=== PATIENT | female | born 1945 | race Asian ===

== ENCOUNTER 2020-09-09 09:10 | Day surgery (SDC) | payer OTHER, SELFPAY ==
[2020-09-02 14:36] VITALS: BMI 27.9
--- NOTE | 2020-09-04 08:06 | MHC.SHP ---
Pre-Procedural Eval Section A The patient is an INPATIENT: No The History & Physical has been completed within 30 days and I have reviewed it.: Yes Section B Chief Complaint: Cataract Left Eye Allergies: Allergies Allergy/AdvReac Type Severity Reaction Status Date / Time No Known Allergies Allergy Verified 09/02/20 14:45 Plan Diagnosis/Plan: Unchanged Patient has been examined and remains a candidate for the planned procedure
--- NOTE | 2020-09-09 09:57 | PC.NURSE ---
patient speaks estonian. family wasnt with patient. using [employer] latex spooler.
--- NOTE | 2020-09-09 10:08 | PC.NURSE ---
linda riversi [phone]
--- NOTE | 2020-09-09 10:16 | P.CONAN_ITS ---
[facility] Past Medical History Medical History Back pain GERD (gastroesophageal reflux disease) Hepatitis Thyroid disease Surgical History Surgical History H/O colonoscopy Hx of hysterectomy Social History Social History Smoking Status: Never smoker Use of substances other than those prescribed or required for medical reasons: No Advance Directives Information Provided: No Recently lost weight without trying: No Meds Allergies Allergy/AdvReac Type Severity Reaction Status Date / Time No Known Allergies Allergy Verified 09/02/20 14:45 Home Medications Medication Instructions Recorded Confirmed Type aspirin 1 tab PO DAILY 09/02/20 09/02/20 History fluoxetine 1 tab PO DAILY 09/02/20 09/02/20 History levothyroxine 1 tab PO DAILY 09/02/20 09/02/20 History meloxicam 1 tab PO DAILY 09/02/20 09/02/20 History metronidazole 1 TOPICAL DAILY 09/02/20 History omeprazole 40 mg PO DAILY 09/02/20 09/02/20 History Exam Exam Date and Time: September 09, 2020 1016 Height,Weight and Vital Signs: Height 4 ft 9 in Weight 58.513 kg Airway Mallampati Class: III TM Dist: >3cm Neck ROM: Full Loose/Missing/Broken Teeth: Yes, Upper and Lower (Overall poor dentition) Heart: RRR Lungs: CTA Assessment and Plan Assessment Anesthesia Assessment: Anesthesia Plan Discussed and Chart Reviewed Final Anesthetic Review NPO: Yes ASA Class: II Final Preanesthetic Review: Meds/Allgs Chart Reviewed, Consent Obtained/Reviewed and Anes Risks/Benef Reviewed Patient Risk: Low Procedure Risk: Low Anesthetic Plan Anesthetic Plan: MAC: Disposition: Standard PACU
--- NOTE | 2020-09-09 10:30 | PC.NURSE ---
patient doesnt know her birthday but has no sugns of confusion. spoke to her son in law caleb at [phone] and states she signs for herself and that she isnt confused and that is her baseline not knowing her birthday.spoke to ana and that is ok to proceed. signs with an x only.
[2020-09-09 10:34] VITALS: BP 172/88; PULSE 75; RESP 16; TEMP 37
[2020-09-09] MEDS: Tetracaine HCl/PF 0.5% Oph Sol 4 ML DROPS 1 DROP EYE-LEFT (10:41)
[2020-09-09] MEDS: Lactated Ringers 500 ML 50 ML IV (10:41)
[2020-09-09] MEDS: Tropicamide 1 % Ophth Sol 3 ML BTL 1 DROP EYE-LEFT ×3 (10:43→10:52)
--- NOTE | 2020-09-09 11:02 | PC.NURSE ---
two meds taken but unknown
[2020-09-09 12:04] VITALS: PULSE 63; RESP 18; TEMP 36.4; O2SAT 99
--- NOTE | 2020-09-09 12:04 | HO.PNOPHT ---
Ophthalmology Procedure Procedure Date of Service: 09/09/20 Ophthalmology Viscoelastic: Healon Duet Dual Pack Pro Ophthalmology Lenses: [id number] [id number] (22) Procedure Notes: PREOPERATIVE DIAGNOSIS: Decreased visual acuity left eye secondary to cataract POSTOPERATIVE DIAGNOSIS: Same PROCEDURE: Left cataract extraction with intraocular lens insertion SURGEON: Mal Olivas M.D. ANESTHESIA: Topical/MAC ESTIMATED BLOOD LOSS: None COMPLICATIONS: None After obtaining informed consent, the patient was brought to the operation room suite and placed in the supine position. After adequate sedation per anesthesia, topical drops of Tetracaine were given to the left eye. The eye was then prepped and draped in the usual sterile fashion. The operating room microscope was then positioned over the operative eye and a lid speculum placed. A paracentesis was created. Viscoelastic was then instilled into the anterior chamber. A three plane incision was then created temporally, utilizing a 2.85 mm keratome. Capsulotomy forceps were then utilized to create a circular tear capsulotomy. Hydrodissection and hydrodelineation were carried out until adequate mobilization of the nucleus occurred. Phacoemulsification was then utilized to remove the dense central nucleus followed by removal of the cortical material utilizing the automated aspiration irrigation unit. Viscoat elastic was instilled into the posterior capsular bag followed by placement of a posterior chamber intraocular lens without difficulty. The residual Viscoat elastic was then removed utilizing the automated IA machine. The wound was check and found to be watertight. The patient tolerated the procedure well and the lid speculum was removed. Intracameral injection of Vigamox 0.1 mL followed by a subtenon injection of Kenalog-40 0.2 mL were administered. The patient will be seen in the a.m.
== END 2020-09-09 12:44 | disposition home or self-care (01) ==
PROVIDERS: PCP Pediatrics; Visit Provider Ophthalmology
PROC: (CPT 66985; principal; 2020-09-09 11:40)
DX: H25.12 Age-related nuclear cataract, left eye (principal); H54.7 Unspecified visual loss; E07.9 Disorder of thyroid, unspecified; Z79.82 Long term (current) use of aspirin; Z79.899 Other long term (current) drug therapy
CPT/HCPCS: 66984; J2250; J3010; J3300; V2632

== ENCOUNTER 2020-09-23 06:51 | Day surgery (SDC) | payer OTHER, SELFPAY ==
[2020-09-02 14:49] VITALS: BMI 27.4
--- NOTE | 2020-09-10 13:13 | MHC.SHP ---
Pre-Procedural Eval Section A The patient is an INPATIENT: No The History & Physical has been completed within 30 days and I have reviewed it.: Yes Section B Chief Complaint: Cataract Right Eye Allergies: Allergies Allergy/AdvReac Type Severity Reaction Status Date / Time No Known Allergies Allergy Verified 09/02/20 14:45 Plan Diagnosis/Plan: Unchanged Patient has been examined and remains a candidate for the planned procedure
--- NOTE | 2020-09-16 14:20 | HO.ANESPROP2 ---
Documented by User: Lynn Naidu 09/16/20 14:20 HPI - Anesthesia Eval Consult details Narrative: 74yo F for Cataract Extraction 1st eye: Fent 25, Midaz 1 [facility] Past Medical History Medical History Back pain GERD (gastroesophageal reflux disease) Hepatitis Thyroid disease Surgical History Surgical History H/O colonoscopy Hx of hysterectomy Social History Social History Smoking Status: Never smoker Use of substances other than those prescribed or required for medical reasons: No Have you been hit, kicked, punched, or otherwise hurt by someone within the past year? If so, by whom?: No Advance Directives Information Provided: No Recently lost weight without trying: No Meds Allergies Allergy/AdvReac Type Severity Reaction Status Date / Time No Known Allergies Allergy Verified 09/02/20 14:45 Home Medications Medication Instructions Recorded Confirmed Type aspirin 1 tab PO DAILY 09/02/20 09/02/20 History fluoxetine 1 tab PO DAILY 09/02/20 09/02/20 History levothyroxine 1 tab PO DAILY 09/02/20 09/02/20 History meloxicam 1 tab PO DAILY 09/02/20 09/02/20 History metronidazole 1 TOPICAL DAILY 09/02/20 History omeprazole 40 mg PO DAILY 09/02/20 09/02/20 History Exam Exam Date and Time: September 16, 2020 1420 Height,Weight and Vital Signs: Height 4 ft 9 in Weight 57.606 kg Assessment and Plan Assessment Anesthesia Assessment: Chart Reviewed Documented by User: Rae Bowens 09/23/20 07:40 [facility] Past Medical History Medical History Back pain GERD (gastroesophageal reflux disease) Hepatitis Thyroid disease Surgical History Surgical History H/O colonoscopy Hx of hysterectomy Social History Social History Smoking Status: Never smoker Use of substances other than those prescribed or required for medical reasons: No Have you been hit, kicked, punched, or otherwise hurt by someone within the past year? If so, by whom?: No Advance Directives Information Provided: No Recently lost weight without trying: No Meds Allergies Allergy/AdvReac Type Severity Reaction Status Date / Time No Known Allergies Allergy Verified 09/02/20 14:45 Home Medications Medication Instructions Recorded Confirmed Type aspirin 1 tab PO DAILY 09/02/20 09/02/20 History fluoxetine 1 tab PO DAILY 09/02/20 09/02/20 History levothyroxine 1 tab PO DAILY 09/02/20 09/02/20 History meloxicam 1 tab PO DAILY 09/02/20 09/02/20 History metronidazole 1 TOPICAL DAILY 09/02/20 History omeprazole 40 mg PO DAILY 09/02/20 09/02/20 History Exam Airway Mallampati Class: III TM Dist: >3cm Neck ROM: Full Loose/Missing/Broken Teeth: Yes, Upper and Lower Heart: RRR Lungs: CTA Assessment and Plan Assessment Anesthesia Assessment: Anesthesia Plan Discussed and Chart Reviewed Final Anesthetic Review NPO: Yes ASA Class: II Final Preanesthetic Review: No Changes in Pt Med Stat, Meds/Allgs Chart Reviewed, Consent Obtained/Reviewed and Anes Risks/Benef Reviewed Patient Risk: Low Procedure Risk: Low Anesthetic Plan Anesthetic Plan: MAC: Disposition: Standard PACU
[2020-09-23 07:11] VITALS: BP 160/77; PULSE 65; RESP 20; TEMP 36.6; O2SAT 98
--- NOTE | 2020-09-23 07:56 | PC.NURSE ---
karthikeyan engagement specialist through [employer]
[2020-09-23] MEDS: Lactated Ringers 500 ML 50 ML IV (08:02)
[2020-09-23] MEDS: Tetracaine HCl/PF 0.5% Oph Sol 4 ML DROPS 1 DROP EYE-RIGHT (08:04)
[2020-09-23] MEDS: Tropicamide 1 % Ophth Sol 3 ML BTL 1 DROP EYE-RIGHT ×3 (08:05→08:10)
--- NOTE | 2020-09-23 08:35 | HO.PNOPHT ---
Ophthalmology Procedure Procedure Date of Service: 09/23/20 Ophthalmology Viscoelastic: Healon Duet Dual Pack Pro Ophthalmology Lenses: TECNIS [id number] (22.5) Procedure Notes: PREOPERATIVE DIAGNOSIS: Decreased visual acuity right eye secondary to cataract POSTOPERATIVE DIAGNOSIS: Same PROCEDURE: Right cataract extraction with intraocular lens insertion SURGEON: Mal Olivas M.D. ANESTHESIA: Topical/MAC ESTIMATED BLOOD LOSS: None COMPLICATIONS: None After obtaining informed consent, the patient was brought to the operating room suite and placed in the supine position. After adequate sedation per anesthesia, topical drops of Tetracaine were given to the right eye. The eye was then prepped and draped in the usual sterile fashion. The operating room microscope was then positioned over the operative eye and a lid speculum placed. A paracentesis was created. Viscoelastic was then instilled into the anterior chamber. A three plane incision was then created temporally, utilizing a 2.85 mm keratome. Capsulotomy forceps were then utilized to create a circular tear capsulotomy. Hydrodissection and hydrodelineation were carried out until adequate mobilization of the nucleus occurred. Phacoemulsification was then utilized to remove the dense central nucleus followed by removal of the cortical material utilizing the automated aspiration irrigation unit. Viscoelastic was instilled into the posterior capsular bag followed by placement of a posterior chamber intraocular lens without difficulty. The residual Viscoelastic was then removed utilizing the automated IA machine. The wound was checked and found to be watertight. The patient tolerated the procedure well and the lid speculum was removed. Intracameral injection of Vigamox 0.1 mL followed by a subtenon injection of Kenalog-40 0.2 mL were administered. The patient will be seen in the a.m.
[2020-09-23 08:36] VITALS: BP 149/77; PULSE 67; RESP 18; TEMP 36.3; O2SAT 100
== END 2020-09-23 09:12 | disposition home or self-care (01) ==
PROVIDERS: PCP Pediatrics; Visit Provider Ophthalmology
PROC: (CPT 66985; principal; 2020-09-23 08:40)
DX: H25.11 Age-related nuclear cataract, right eye (principal); H54.7 Unspecified visual loss; E07.9 Disorder of thyroid, unspecified; Z79.899 Other long term (current) drug therapy; Z79.82 Long term (current) use of aspirin
CPT/HCPCS: 66984; J2250; J3300; V2632